=== PATIENT | male | born 1975 | race Two or more races ===

== ENCOUNTER → 2021-05-29 | Emergency (ER) | payer OTHER ==
[~2021-05-29] VITALS: Ht 165.1 cm; Wt 86.2 kg
[~2021-05-29] MED LIST: ALBUTEROL17 G1 IH; CELEXA10 MG; CLONAZEPAM1 MG; FLEXERIL5 MG PO; LISINOPRIL2.5 MG; SINGULAIR4 MG PO
== END | disposition home or self-care (01) ==
LOC: ER 19:38
DX: Z48.02 Encounter for removal of sutures (principal)

== ENCOUNTER 2022-10-19 19:01 | Emergency (ER) | payer OTHER ==
[~2022-10-19] VITALS: Ht 165.1 cm; Wt 80.7 kg
[~2022-10-19 19:01] MED LIST changes: +CIPRO500 MG PO; +LEVSIN/SL0.125 MG SL; +METRONIDAZOLE500 MG PO; +MIRALAX510 GM PO
== END 2022-10-19 21:22 | disposition home or self-care (01) ==
LOC: ER 19:01
DX: U07.1 COVID-19 (principal)

== ENCOUNTER 2022-10-30 19:56 | Inpatient (IN) | payer OTHER ==
[~2022-10-30] VITALS: Ht 167.6 cm; Wt 85.7 kg
[2022-10-31] MEDS ORDERED: AMITRIPTYLINE H50 MG (15:11)
[2022-10-31] MEDS ORDERED: PANTOPRAZOLE SO40 MG (15:12)
[2022-10-31] MEDS ORDERED: BUSPIRONE HCL15 MG (15:12)
[2022-10-31] MEDS ORDERED: DICYCLOMINE HCL10 MG (15:12)
[2022-10-31] MEDS ORDERED: CETIRIZINE HCL10 MG (15:12)
[2022-10-31] MEDS ORDERED: FAMOTIDINE40 MG (15:12)
[2022-10-31] MEDS ORDERED: GABAPENTIN800 M1 (15:12)
[2022-10-31] MEDS ORDERED: SYMBICORT 16010.2 GM (15:12)
[2022-10-31] MEDS ORDERED: ATORVASTATIN CA20 MG (15:12)
[2022-10-31] MEDS ORDERED: FLONASE16 GM (15:12)
== END 2022-11-04 17:01 | disposition home or self-care (01) | DRG 392 ==
LOC: ER 19:56 → SEC-K 10-31 13:29 → MEDI 10-31 13:29
PROVIDERS: ADMIT Internal Medicine; ATTEND Internal Medicine
DX: K57.32 Diverticulitis of large intestine without perforation or abscess without bleeding (principal); R10.32 Left lower quadrant pain; I10 Essential (primary) hypertension

== ENCOUNTER 2023-07-17 09:14 | Outpatient (CLI) | payer OTHER ==
[~2023-07-17 09:14] MED LIST changes: +AMITRIPTYLINE H50 MG; +ATORVASTATIN CA20 MG; +BUSPIRONE HCL15 MG; +CETIRIZINE HCL10 MG; +DICYCLOMINE HCL10 MG; +FAMOTIDINE40 MG; +FLONASE16 GM; +GABAPENTIN800 M1; +PANTOPRAZOLE SO40 MG; +SYMBICORT 16010.2 GM
== END 2023-07-17 09:20 | disposition home or self-care (01) ==
LOC: RX STUDY 09:14
PROVIDERS: ATTEND Internal Medicine Gastroenterology
DX: R13.10 Dysphagia, unspecified (principal)

== ENCOUNTER 2025-02-11 17:28 | Emergency (ER) | payer OTHER ==
[~2025-02-11] VITALS: Ht 165.1 cm; Wt 88.5 kg
[2025-02-11] MEDS ORDERED: ONDANSETRON HCL 2 MG/ML VIAL IV ONE (18:15)
[2025-02-11] MEDS ORDERED: FAMOTIDINE/PF 20 MG/2 ML VIAL IV ONE (18:15)
[2025-02-11] MEDS ORDERED: KETOROLAC TROMETHAMINE 30 MG VIAL IV ONE (18:15)
[2025-02-11] MEDS ORDERED: 0.9 % SODIUM CHLORIDE 1,000 ML IV ONE (18:15)
[2025-02-11] MEDS ORDERED: FAMOTIDINE/PF 20 MG/2 ML VIAL ONE (18:32)
[2025-02-11] MEDS ORDERED: KETOROLAC TROMETHAMINE 30 MG VIAL ONE (18:32)
[2025-02-11] MEDS ORDERED: ONDANSETRON HCL 2 MG/ML VIAL ONE (18:32)
[2025-02-11 19:17] LABS: URINE APPEARANCE Clear; URINE BILIRRUBIN Negative (NEGATIVE); URINE BLOOD Small; URINE COLOR Yellow; URINE GLUCOSE Negative (NEGATIVE); URINE KETONE Negative (NEGATIVE); URINE LEUKOCYTE Trace; URINE NITRATE Negative; URINE PROTEIN Negative (NEGATIVE); URINE UROBILINOGEN 0.2 E.U./dl
[2025-02-11 19:21] LABS: URINE RBC 78.1 uL (0.0-20.8)
[2025-02-11 19:24] LABS: BASO % 0.4 % (0.1-1.2); EOS # 0.11 (0.04-0.54); EOS % 1.4 % (0.7-7.0); LYMPH # 1.42 (1.18-3.74); LYMPH % 18.1 % (19.3-53.1); MEAN PLATELET VOLUME 9.20 fl (9.4-12.4); MONO # 0.79 (0.24-0.82); MONO % 10.1 % (4.7-12.5); NEUT # 5.46 (1.56-6.13); NEUT % 69.7 % (34.0-71.1); RED CELL DISTRIBUTION WIDTH 12.0 % (11.6-14.4)
[2025-02-11 19:36] LABS: URINE BACTERIA 0 uL (0.0-1933); URINE CAST 0.00 uL (0.0-1.40); URINE EPITHELIAL CELLS 1.2 uL (0.0-38.8); URINE WBC 1.2 uL (0.0-23.2)
[2025-02-11 19:48] LABS: ALT/SGPT 36.0 U/L (12-78); AST/SGOT 22.0 U/L (15-37); BILIRUBIN TOTAL 0.72 mg/dL (0.3-1.2); BUN CREA RATIO 12.0 (7.0-25.0); CREATININE SERUM 1.16 mg/dL (0.70-1.30); GFR 66.38; GLOBULINA 4.0 G/DL (2.4-3.5); GLUCOSE FASTING 96.0 mg/dL (65-100); OSMOLALITY SERUM 280.0 MOSM/KG (275-295)
[2025-02-11 20:07] LABS: COVID-19 AG NEGATIVE (NEGATIVE)
[2025-02-11] MEDS ORDERED: INTESTINEX680 M1 PO (22:21)
[2025-02-11] MEDS ORDERED: CIPRO500 MG PO (22:21)
[2025-02-11] MEDS ORDERED: PEPCID AC20 MG PO (22:21)
[2025-02-11] MEDS ORDERED: PERCOGESIC EXT1 EACH PO (22:21)
[2025-02-11] MEDS ORDERED: METRONIDAZOLE500 MG PO (22:21)
[2025-02-11] MEDS ORDERED: METRONIDAZOLE/SODIUM CHLORIDE 500 MG/100 ML PIGGYBACK IV ONE ×2 (22:29→22:30)
[2025-02-11] MEDS ORDERED: CIPROFLOXACIN IN 5 % DEXTROSE 400 MG/200 ML PIGGYBAG IV ONE ×2 (22:29→22:30)
== END 2025-02-12 01:32 | disposition home or self-care (01) ==
LOC: ER 17:28
PROVIDERS: General Practice
DX: K57.32 Diverticulitis of large intestine without perforation or abscess without bleeding (principal); Z20.822 Contact with and (suspected) exposure to COVID-19; I10 Essential (primary) hypertension; Z87.09 Personal history of other diseases of the respiratory system
CPT/HCPCS: 36415; 74177; 96365; 96366; 99284; J0744; J1885; J2405; J3490; Q9965

== ENCOUNTER 2025-03-13 13:31 | Outpatient (CLI) | payer OTHER ==
[~2025-03-13 13:31] MED LIST changes: +INTESTINEX680 M1 PO; +PEPCID AC20 MG PO; +PERCOGESIC EXT1 EACH PO
== END 2025-03-13 13:36 | disposition home or self-care (01) ==
LOC: TOM 13:31
PROVIDERS: ATTEND Otolaryngology
DX: J34.2 Deviated nasal septum (principal)